=== PATIENT | female | born 1985 | race Two or more races ===

== ENCOUNTER 2022-10-22 10:27 | Emergency (ER) | payer SELFPAY ==
[2022-10-22] MEDS ORDERED: SODIUM CHLORIDE 0.9% 1000 ML INFUS.BAG IV ONE (10:37)
[2022-10-22] MEDS ORDERED: morphine SULFATE 4 MG/ML VIAL IVPUSH ONE (10:37)
[2022-10-22] MEDS ORDERED: morphine SULFATE 4 MG/ML VIAL ONE (10:51)
[2022-10-22 11:07] VITALS: BMI 26.9
[2022-10-22] MEDS ORDERED: ACETAMINOPHEN 1000 MG/100 ML BAG IVPB ONE (11:35)
[2022-10-22] MEDS ORDERED: ONDANSETRON 4 MG/2 ML VIAL IVPUSH ONE (11:35)
[2022-10-22 11:45] LABS: BASO % 0.4 % (0-2.0); EOS % 0.3 % (0-4.5); HEMATOCRIT 38.9 % (32.4-45.2); HEMOGLOBIN 13.3 GM/dL (10.7-15.3); LYMPH % 10.9 % (8-40); MCH 30.4 pg (25.7-33.7); MEAN CELL VOLUME 89.3 fl (80-96); MEAN PLT VOLUME 8.1 fl (7.5-11.1); MONO % 10.7 % (3.8-10.2); NEUT % 77.7 % (42.8-82.8); PLATELET COUNT 472 10^3/uL (134-434); RBC 4.36 M/mm3 (3.60-5.2); RDW 12.9 % (11.6-15.6); WHITE BLOOD COUNT 15.7 K/mm3 (4.0-10.0)
[2022-10-22 12:04] LABS: POTASSIUM 4.6 mmol/L (3.5-5.1)
[2022-10-22 12:07] LABS: ALBUMIN 3.7 g/dl (3.4-5.0); BLOOD UREA NITROGEN 11.2 mg/dL (7-18); CALCIUM 9.4 mg/dL (8.5-10.1)
[2022-10-22 12:11] LABS: CREATININE 1.3 mg/dL (0.55-1.3)
[2022-10-22 12:12] LABS: TOT PROT 8.6 g/dl (6.4-8.2)
[2022-10-22 12:13] LABS: BILIRUBIN,TOTAL 1.5 mg/dL (0.2-1)
[2022-10-22] MEDS ORDERED: ONDANSETRON 4 MG/2 ML VIAL ONE (12:38)
[2022-10-22] MEDS ORDERED: ACETAMINOPHEN INJECTION 100 ML IVPB ONE (12:38)
[2022-10-22] MEDS ORDERED: CEFTRIAXONE 1,000 MG in DEXTROSE 5%-WATER - 50 ML IVPB ONE (13:24)
[2022-10-22] MEDS ORDERED: CEFTRIAXONE 1 GM/50 ML BAG ONE (13:47)
[2022-10-22 16:10] VITALS: BP 104/65; PULSE 87; RESP 20; TEMP 98.3
== END 2022-10-22 16:18 | disposition short-term general hospital (02) ==
LOC: JER 10:27
PROC: 3E03329 Introduction of Other Anti-infective into Peripheral Vein, Percutaneous Approach (ICD-10-PCS; principal; 2022-10-22)
PROC: 3E033GC Introduction of Other Therapeutic Substance into Peripheral Vein, Percutaneous Approach (ICD-10-PCS; 2022-10-22)
PROC: 3E033GC Introduction of Other Therapeutic Substance into Peripheral Vein, Percutaneous Approach (ICD-10-PCS; 2022-10-22)
PROC: 3E033GC Introduction of Other Therapeutic Substance into Peripheral Vein, Percutaneous Approach (ICD-10-PCS; 2022-10-22)
DX: T83.092A Other mechanical complication of nephrostomy catheter, initial encounter (principal); N13.9 Obstructive and reflux uropathy, unspecified; R11.0 Nausea
CPT/HCPCS: 36415; 74176-TC; 80053; 83605; 84703; 85025; 87040; 93005; 93010

== ENCOUNTER 2022-12-29 16:55 | Emergency (ER) | payer OTHER ==
[2022-12-29 17:08] VITALS: BP 107/68; PULSE 79; RESP 20; TEMP 98.6; BMI 29.5
== END 2022-12-29 19:50 | disposition left against medical advice (07) ==
LOC: JER 16:55
DX: R07.9 Chest pain, unspecified (principal); R20.2 Paresthesia of skin; R11.0 Nausea
CPT/HCPCS: 93005; 93010; 99283-25